=== PATIENT | female | born 1990 | race Caucasian/White ===

== ENCOUNTER 2020-06-25 15:13 | Emergency (ER) | payer MEDICAID ==
[2020-06-25] MEDS ORDERED: Glucagon,Human Recombinant 1 MG Vial IVPUSH ONE ×2 (15:27→15:43)
--- NOTE | 2020-06-25 15:29 | EDM.PDOC ---
ED HPI GENERAL MEDICAL PROBLEM - General Chief Complaint: ENT Problem Stated Complaint: CASTRO OF STEAK STUCK IN HER THROAT Time Seen by Provider: 06/25/20 15:21 Source of Information: Reports: Patient History Limitations: Reports: No Limitations - History of Present Illness INITIAL COMMENTS - FREE TEXT/NARRATIVE: This patient is a 30 year old female that presents to the ER. Patient reports that at 10:30am this morning she was eating steak. She reports a piece of steak got stuck in her throat. She reports that it did drop down to the epigastric area that she points at, then she reports it keeps coming back up to the throat when she vomits. She reports vomiting multiple times. Patient reports that she has had this happen before in the past. Patient reports that she does feel short fo breath, cough, and there is pain associated with it. Patient current oxygen saturation is 98% RA, Lung sounds are clear, she does not appear in any respiratory distress. Onset: Today Onset Date: 06/25/20 Onset Time: 10:30 Location: Reports: Chest, Other (throat) Severity: Moderate Improves with: Reports: None Worsens with: Reports: None Associated Symptoms: Reports: Cough, Nausea/Vomiting, Shortness of Breath. Denies: Confusion, Chest Pain, cough w sputum, Diaphoresis, Fever/Chills, Headaches, Loss of Appetite, Malaise, Rash, Seizure, Syncope, Weakness Epigastric Pain Score (Numeric/FACES): 10 - Related Data Allergies Allergy/AdvReac Type Severity Reaction Status Date / Time Penicillins Allergy Hives Verified 06/25/20 15:26 Home Meds: Home Meds . [No Known Home Meds] 06/25/20 [History] Past Medical History - Past Surgical History HEENT Surgical History: Reports: Tonsillectomy GI Surgical History: Reports: Cholecystectomy Female Surgical History: Reports: Tubal Ligation Social & Family History - Family History Family Medical History: No Pertinent Family History - Tobacco Use Tobacco Use Status *Q: Never Tobacco User - Caffeine Use Caffeine Use: Reports: None - Recreational Drug Use Recreational Drug Use: No ED ROS GENERAL - Review of Systems Review Of Systems: See Below Constitutional: Reports: No Symptoms Respiratory: Reports: Shortness of Breath, Cough. Denies: Wheezing, Pleuritic Chest Pain, Sputum, Hemoptysis Cardiovascular: Reports: No Symptoms Endocrine: Reports: No Symptoms GI/Abdominal: Reports: Abdominal Pain, Distension, Nausea, Vomiting, Other (Epigastric, throat pain, sensation) : Reports: No Symptoms Musculoskeletal: Reports: No Symptoms Skin: Reports: No Symptoms Neurological: Reports: No Symptoms Psychiatric: Reports: No Symptoms Hematologic/Lymphatic: Reports: No Symptoms Immunologic: Reports: No Symptoms ED EXAM, GI/ABD - Physical Exam Exam: See Below Exam Limited By: No Limitations General Appearance: Alert, WD/WN, No Apparent Distress, Anxious Eyes: Bilateral: Normal Appearance Ears: Normal External Exam, Normal Canal, Hearing Grossly Normal, Normal TMs Nose: Normal Inspection, Normal Mucosa, No Blood Throat/Mouth: Normal Inspection, Normal Lips, Normal Teeth, Normal Gums, Normal Oropharynx, Normal Voice, No Airway Compromise Head: Atraumatic, Normocephalic Course - Vital Signs Last Recorded V/S: Last Vital Signs Temp 98.7 F 06/25/20 15:17 Pulse 66 06/25/20 15:17 Resp 18 06/25/20 15:17 BP 110/76 06/25/20 15:17 Pulse Ox 98 06/25/20 15:17 - Orders/Labs/Meds Orders: Active Orders 24 hr Category Date Time Status Chest 2V [CR] Stat Exams 06/25/20 17:38 Ordered Meds: Medications Discontinued Medications Generic Name Dose Route Start Last Admin Trade Name Janey PRAna Reason Stop Dose Admin Glucagon 1 mg 06/25/20 15:27 06/25/20 15:34 Glucagon,Human Recombinant 1 Mg Vial IVPUSH 06/25/20 15:28 1 mg ONETIME ONE Administration Glucagon 1 mg 06/25/20 15:43 06/25/20 15:52 Glucagon,Human Recombinant 1 Mg Vial IVPUSH 06/25/20 15:44 1 mg ONETIME ONE Administration - Re-Assessments/Exams Free Text/Narrative Re-Assessment/Exam: 06/25/20 17:44 Patient was reseen, she reports she still feels FB and now hurting in her back. She was on phone upon entering the room. Due to her cough and back pain, have ordered a CXR. However, after leaving the room, Rogers JAIMES called me and told me that the patient vomited up the piece of meat and she now feels fine. I went and saw patient again, she reports she has no pain, no FB sensation, no other symptoms. She reports she is ready to go home. Will discharge. Departure - Departure Time of Disposition: 17:45 Disposition: Home, Self-Care 01 Condition: Fair Clinical Impression: Esophageal foreign body Qualifiers: Encounter type: initial encounter Qualified Code(s): T18.108A - Unspecified foreign body in esophagus causing other injury, initial encounter - Discharge Information *PRESCRIPTION DRUG MONITORING PROGRAM REVIEWED*: Not Applicable *COPY OF PRESCRIPTION DRUG MONITORING REPORT IN PATIENT ROMAN: Not Applicable Instructions: Swallowed Foreign Body, Adult Forms: ED Department Discharge Additional Instructions: Followup with Dr. Pablo for a scope by calling [facility] [phone] Return to the ER for worsening of condition or any emergent concerns such as fever, shortness of breath, or other concerns Sepsis Event Note (ED) - Evaluation Sepsis Screening Result: No Definite Risk - Focused Exam Vital Signs: Vital Signs Temp Pulse Resp BP Pulse Ox 06/25/20 15:17 98.7 F 66 18 110/76 98 - My Orders Last 24 Hours: My Active Orders 06/25/20 17:38 Chest 2V [CR] Stat - Assessment/Plan Last 24 Hours: My Active Orders 06/25/20 17:38 Chest 2V [CR] Stat Plan: PLEASE SEE RN NOTE FOR PFSH
== END 2020-06-25 18:05 | disposition home or self-care (01) ==
LOC: CC.ED 15:13
DX: T18.128A Food in esophagus causing other injury, initial encounter (principal); Z88.0 Allergy status to penicillin
CPT/HCPCS: 96374; 99283-25; J1610

== ENCOUNTER → 2020-07-16 | Day surgery (SDC) | payer MEDICAID ==
[~2020-07-16] MED LIST: Lactated Ringers 1,000 ML IV ONE
[2020-07-16] MEDS: Lactated Ringers 1,000 ML IV ONE (10:20)
--- NOTE | 2020-07-19 07:05 | OR ---
DATE OF OPERATION: 07/16/2020 PREOPERATIVE DIAGNOSIS: DYSPHAGIA. POSTOPERATIVE DIAGNOSIS: DYSPHAGIA. SURGEON: Abel Pablo MD PROCEDURE: DIAGNOSTIC ESOPHAGOGASTRODUODENOSCOPY WITH BIOPSY X1, MAURO. ANESTHESIA: MAC. COMPLICATIONS: None. SPECIMEN: 1. Antral MAURO. 2. Biopsy x1, EG junction. FINDINGS: 1. Full-length diagnostic EGD. 2. Spontaneous reflux. 3. Nonobstructing Schatzki's ring. RECOMMENDATIONS: The patient is to start a trial of proton pump therapy. Her ring is around 20 mm and I am sure she gets spastic from her reflux. If down the road she continues to be symptomatic, she will need monitoring for possible need for dilatation. INDICATIONS: The patient has been having periods of reflux and at times she says food feels like it does not want to go down. It always does spontaneously and she was told many times to have an EGD. DESCRIPTION OF PROCEDURE: The patient was prepped and draped, placed in the left lateral decubitus position. A lubricated Olympus gastroscope was inserted and advanced to cricopharyngeus area and easily intubated in the esophagus. The esophageal lining was benign in its entire course. The Z-line was crisp around 40 cm. There was a nonobstructing Schatzki's ring present with a little bit of friability at the EG junction. The scope was easily passed through here with much room to spare, but just the irritation from the scope did cause a little bleeding. The scope was easily advanced through the stomach and pylorus into the second portion of the duodenum. This and the duodenal bulb were completely benign. The scope was brought back into the stomach and retroflexed. A thorough evaluation with and without retroflexion showed no signs of any gastritis or peptic ulcer disease. No polyps, masses, or otherwise. An antral CLOtest was obtained. The scope was brought back into the distal esophagus. The Schatzki's ring was again visualized. We did biopsy x1 at the EG junction. No other lesions were identified. Air was suctioned, the scope was removed without complication. ALLA/PERLA /[id number]
== END ==
LOC: CC.SDS 08:51
PROVIDERS: ATTEND Family Medicine
DX: K20.90 Esophagitis, unspecified without bleeding (principal); K22.2 Esophageal obstruction; K21.9 Gastro-esophageal reflux disease without esophagitis; K31.89 Other diseases of stomach and duodenum; Z88.0 Allergy status to penicillin; Z98.890 Other specified postprocedural states; F32.9 Major depressive disorder, single episode, unspecified; G89.29 Other chronic pain; R51.9 Headache, unspecified
CPT/HCPCS: 43239; 87081; J7120; 00731

== ENCOUNTER 2020-10-18 15:23 | Emergency (ER) | payer MEDICAID ==
[2020-10-18 15:58] LABS: CHLORIDE,CL 105 mEq/L (98-106); SODIUM,NA 141 mEq/L (136-145)
--- NOTE | 2020-10-18 16:23 | EDM.PDOC ---
ED HPI GENERAL MEDICAL PROBLEM - General Chief Complaint: Abdominal Pain Stated Complaint: PAIN IN STOMACH & FRONT Time Seen by Provider: 10/18/20 16:23 - History of Present Illness INITIAL COMMENTS - FREE TEXT/NARRATIVE: Indu is a 30 yo female who presents to the ED with c/o abdominal pain. Reports onset 10 minutes prior to presentation. She did not try anything at home for the pain prior to presentation. Describes the pain as sharp and reports it is "all over her abdomen." Does report it is worse in lower abdomen. Reports she was nauseated yesterday. Denies any fever, chills, vomiting, diarrhea. Reports she feels like she needs to stool but cant. Reports pain is improved by lying on her right side. She feels like her abdomen is bloated. Has not been passing gas. Does report LBM was this morning. BM was formed and hard. Denies any changes she's as "hasn't had sex in a year." Denies any urinary symptoms. Lower Back Pain Score (Numeric/FACES): 10 - Related Data Allergies Allergy/AdvReac Type Severity Reaction Status Date / Time Penicillins Allergy Hives Verified 10/18/20 15:28 Home Meds: Home Meds Escitalopram Oxalate [Lexapro] 10 mg PO DAILY 10/18/20 [History] PARoxetine [Paxil] 10 mg PO DAILY 10/18/20 [History] Past Medical History - Infectious Disease History Infectious Disease History: Reports: None - Past Surgical History HEENT Surgical History: Reports: Tonsillectomy GI Surgical History: Reports: Cholecystectomy Female Surgical History: Reports: Tubal Ligation Social & Family History - Family History Family Medical History: No Pertinent Family History - Tobacco Use Tobacco Use Status *Q: Never Tobacco User Second Hand Smoke Exposure: No - Caffeine Use Caffeine Use: Reports: Soda - Recreational Drug Use Recreational Drug Use: No ED ROS GENERAL - Review of Systems Review Of Systems: Comprehensive ROS is negative, except as noted in HPI. ED EXAM, GI/ABD - Physical Exam Exam: See Below Exam Limited By: No Limitations General Appearance: Alert, WD/WN, No Apparent Distress Throat/Mouth: Normal Inspection, Normal Lips, Normal Teeth, Normal Gums, Normal Oropharynx, Normal Voice, No Airway Compromise Head: Atraumatic, Normocephalic Neck: Normal Inspection, Supple, Non-Tender, Full Range of Motion Respiratory/Chest: No Respiratory Distress, Lungs Clear, Normal Breath Sounds, No Accessory Muscle Use, Chest Non-Tender Cardiovascular: Normal Peripheral Pulses, Regular Rate, Rhythm, No Edema, No Gal lop, No JVD, No Murmur, No Rub GI/Abdominal Exam: Normal Bowel Sounds, Soft, No Organomegaly, No Distention, No Mass, Pelvis Stable, Tender (diffuse). No: Guarding, Rigid, Rebound Back Exam: Normal Inspection, Full Range of Motion. No: CVA Tenderness (L), CVA Tenderness (R) Extremities: Normal Inspection, Normal Range of Motion, Non-Tender, Normal Capillary Refill, No Pedal Edema Neurological: Alert, Oriented, CN II-XII Intact, Normal Cognition, Normal Gait, Normal Reflexes, No Motor/Sensory Deficits Psychiatric: Normal Affect, Normal Mood Skin Exam: Warm, Dry, Intact, Normal Color, No Rash Course - Vital Signs Last Recorded V/S: Last Vital Signs Temp 98.7 F 10/18/20 15:38 Pulse 62 10/18/20 15:38 Resp 18 10/18/20 15:38 BP 96/47 L 10/18/20 15:38 Pulse Ox 97 10/18/20 15:38 - Orders/Labs/Meds Orders: Active Orders 24 hr Category Date Time Status Abdomen 2V AP Flat Upright [CR] Stat Exams 10/18/20 16:12 Taken Labs: Laboratory Tests 10/18/20 10/18/20 10/18/20 Range/Units 15:35 15:40 15:40 WBC 6.3 (4.0-11.0) 10^3/uL RBC 4.12 (4.00-5.50) x10^6/uL Hgb 13.0 (12.0-16.0) g/dL Hct 37.8 (37.0-47.0) % MCV 91.7 (83.0-97.0) fL MCH 31.6 (27.0-32.0) pg MCHC 34.4 (32.0-36.0) g/dL RDW Coeff of Della 12.7 (11.0-15.0) % Plt Count 265 (150-400) 10^3/uL Immature Gran % (Auto) 0.2 (0.0-4.9) % Neut % (Auto) 61.2 (41-71) % Lymph % (Auto) 24.7 (24-44) % Butts % (Auto) 8.5 (0-10) % Eos % (Auto) 4.9 (0-6) % Baso % (Auto) 0.5 (0-1) % Neut # (Auto) 3.87 (1.80-8.00) x10^3/uL Lymph # (Auto) 1.56 (0.60-5.00) 10^3/uL Butts # (Auto) 0.54 (0.00-1.50) 10^3/uL Eos # (Auto) 0.31 (0.00-1.50) 10^3/uL Baso # (Auto) 0.03 (0.00-0.50) 10^3/uL Immature Gran # (Auto) 0.01 (0.00-0.49) 10^3/uL Sodium 141 (136-145) mEq/L Potassium 3.3 L (3.5-5.0) mEq/L Chloride 105 (98-106) mEq/L Carbon Dioxide 28 (21-32) mmol/L BUN 13 (7-18) mg/dL Creatinine 0.6 (0.6-1.0) mg/dL Est Cr Clr Drug Dosing 123.37 mL/min Estimated GFR (MDRD) > 60 (>=60) mL/min Glucose 116 H (75-99) mg/dL Calcium 8.3 L (8.4-10.1) mg/dL Total Bilirubin 0.5 (0.0-1.0) mg/dL AST 79 H (15-37) U/L ALT 41 (12-78) U/L Alkaline Phosphatase 68 (46-116) U/L C-Reactive Protein < 0.2 L (0.2-0.8) mg/dL Total Protein 6.8 (6.4-8.2) g/dL Albumin 3.6 (3.4-5.0) g/dL Amylase 57 (25-115) U/L Lipase 117 (73-393) U/L Urine Color Yellow (YELLOW) Urine Appearance Clear (CLEAR) Urine pH 5.5 (4.5-8.0) Ur Specific [place] >= 1.030 H (1.003-1.020) Urine Protein Negative (NEGATIVE) mg/dL Urine Glucose (UA) 100 H (NEGATIVE) mg/dL Urine Ketones Negative (NEGATIVE) mg/dL Urine Occult Blood Moderate H (NEGATIVE) Urine Nitrite Negative (NEGATIVE) Urine Bilirubin Negative (NEGATIVE) Urine Urobilinogen 0.2 (0.2-1.0) EU/dL Ur Leukocyte Esterase Negative (NEGATIVE) Urine RBC 5-10 H (0-5) /HPF Urine WBC 5-10 H (0-5) /HPF Ur Squamous Epith Cells Moderate H (NOT SEEN) /HPF Amorphous Sediment Few H (NOT SEEN) /HPF Urine Bacteria Occasional H (NOT SEEN) /HPF Urine Mucus Few H (NOT SEEN) /HPF Departure - Departure Time of Disposition: 16:39 Disposition: Home, Self-Care 01 Condition: Fair Clinical Impression: Abdominal pain Constipation Qualifiers: Constipation type: unspecified constipation type Qualified Code(s): K59.00 - Constipation, unspecified - Discharge Information *PRESCRIPTION DRUG MONITORING PROGRAM REVIEWED*: Not Applicable *COPY OF PRESCRIPTION DRUG MONITORING REPORT IN PATIENT ROMAN: Not Applicable Instructions: Constipation, Adult, Abdominal Pain, Adult, [id number] Referrals: Abel Pablo MD [Primary Care Provider] - Forms: ED Department Discharge Additional Instructions: - As discussed, labs all look good - Xray does show moderate stool burden - Recommend trying Miralax 17 g daily - Increase fiber in diet - Push fluids - Be as active as possible to keep bowels moving - Follow up with PCP in clinic for recheck if symptoms worsen or persist - Return to ED for emergent needs Sepsis Event Note (ED) - Evaluation Sepsis Screening Result: No Definite Risk - Focused Exam Vital Signs: Vital Signs Temp Pulse Resp BP Pulse Ox 10/18/20 15:38 98.7 F 62 18 96/47 L 97 - My Orders Last 24 Hours: My Active Orders 10/18/20 16:12 Abdomen 2V AP Flat Upright [CR] Stat - Assessment/Plan Last 24 Hours: My Active Orders 10/18/20 16:12 Abdomen 2V AP Flat Upright [CR] Stat Assessment:: Abdominal pain Constipation Plan: As above.
== END 2020-10-18 16:45 | disposition home or self-care (01) ==
LOC: CC.ED 15:23
DX: K59.00 Constipation, unspecified (principal); Z88.0 Allergy status to penicillin
CPT/HCPCS: 36415; 74019; 80053; 81001; 82150; 83690; 85025; 86140; 99284-25

== ENCOUNTER 2021-02-20 17:27 | Emergency (ER) | payer MEDICAID ==
--- NOTE | 2021-02-20 18:17 | EDM.PDOC ---
ED HPI GENERAL MEDICAL PROBLEM - General Chief Complaint: Genitourinary Problem Stated Complaint: HEMATURIA Time Seen by Provider: 02/20/21 17:40 Source of Information: Reports: Patient History Limitations: Reports: No Limitations - History of Present Illness INITIAL COMMENTS - FREE TEXT/NARRATIVE: In with complaints of hematuria. States was started on Cipro and flagyl about 8 days ago after being seen in [place]. Was told that she had bladder infection and gastritis. She has no appetite. She still has suprapubic pain and blood in her urine. No fever or chills with it. No flank pain with it. Onset: Gradual Location: Reports: Abdomen - Related Data Allergies Allergy/AdvReac Type Severity Reaction Status Date / Time Penicillins Allergy Hives Verified 02/20/21 17:28 Home Meds: Home Meds Escitalopram Oxalate [Lexapro] 10 mg PO DAILY 10/18/20 [History] PARoxetine [Paxil] 10 mg PO DAILY 10/18/20 [History] Past Medical History - Infectious Disease History Infectious Disease History: Reports: None - Past Surgical History HEENT Surgical History: Reports: Tonsillectomy GI Surgical History: Reports: Cholecystectomy Female Surgical History: Reports: Tubal Ligation Social & Family History - Family History Family Medical History: No Pertinent Family History - Caffeine Use Caffeine Use: Reports: Soda ED ROS GENERAL - Review of Systems Review Of Systems: See Below Constitutional: Denies: Fever, Chills Respiratory: Reports: No Symptoms Cardiovascular: Reports: No Symptoms GI/Abdominal: Reports: Abdominal Pain, Decreased Appetite : Reports: Hematuria. Denies: Dysuria, Flank Pain, Frequency, Irregular Menses Musculoskeletal: Denies: Back Pain Skin: Reports: No Symptoms ED EXAM, RENAL/ - Physical Exam Exam: See Below Exam Limited By: No Limitations General Appearance: Alert, WD/WN, No Apparent Distress Respiratory/Chest: No Respiratory Distress, Lungs Clear, Normal Breath Sounds Cardiovascular: Regular Rate, Rhythm GI/Abdominal: Normal Bowel Sounds, Soft, Tender (across the suprapubic area and slightly to the left. ) Back Exam: Normal Inspection. No: CVA Tenderness (L), CVA Tenderness (R) Extremities: No Pedal Edema Neurological: Alert, Oriented Skin Exam: Warm, Dry, Intact Course - Orders/Labs/Meds Labs: Laboratory Tests 02/20/21 Range/Units 17:45 Urine Color Yellow (YELLOW) Urine Appearance Clear (CLEAR) Urine pH 5.5 (4.5-8.0) Ur Specific [place] >= 1.030 H (1.003-1.020) Urine Protein Negative (NEGATIVE) mg/dL Urine Glucose (UA) Negative (NEGATIVE) mg/dL Urine Ketones Negative (NEGATIVE) mg/dL Urine Occult Blood Large H (NEGATIVE) Urine Nitrite Negative (NEGATIVE) Urine Bilirubin Negative (NEGATIVE) Urine Urobilinogen 0.2 (0.2-1.0) EU/dL Ur Leukocyte Esterase Negative (NEGATIVE) Urine RBC 10-20 H (0-5) /HPF Urine WBC Not seen (0-5) /HPF Ur Epithelial Cells Moderate H (NOT SEEN) /HPF Urine Mucus Moderate H (NOT SEEN) /HPF - Re-Assessments/Exams Free Text/Narrative Re-Assessment/Exam: 02/20/21 18:15 Discussed UA has blood but no WBC or leukocytes or nitrites. Will need renal/bladder US to evaluate hematuria without infection. Departure - Departure Time of Disposition: 18:16 Disposition: Home, Self-Care 01 Condition: Good Clinical Impression: Hematuria - Discharge Information *PRESCRIPTION DRUG MONITORING PROGRAM REVIEWED*: Not Applicable *COPY OF PRESCRIPTION DRUG MONITORING REPORT IN PATIENT ROMAN: Not Applicable Instructions: Hematuria, Adult Forms: ED Department Discharge Additional Instructions: Push fluids as much as possible Xray will call you tomorrow to set up appt for renal/bladder ultrasound. recheck with Dr. Pablo if not improving Tylenol as needed for discomfort - Problem List & Annotations (1) Hematuria SNOMED Code(s): 72881512 Code(s): R31.9 - HEMATURIA, UNSPECIFIED Status: Acute Priority: High Qualifiers: Hematuria type: unspecified type Qualified Code(s): R31.9 - Hematuria, unspecified - Problem List Review Problem List Initiated/Reviewed/Updated: Yes
== END 2021-02-20 18:30 | disposition home or self-care (01) ==
LOC: CC.ED 17:27
DX: R31.9 Hematuria, unspecified (principal); Z88.0 Allergy status to penicillin
CPT/HCPCS: 81001; 99283

== ENCOUNTER 2021-03-30 18:03 | Emergency (ER) | payer MEDICAID ==
--- NOTE | 2021-03-30 18:34 | EDM.PDOC ---
ED HPI GENERAL MEDICAL PROBLEM - General Chief Complaint: Respiratory Problem Stated Complaint: sob, sore throat Time Seen by Provider: 03/30/21 18:25 Source of Information: Reports: Patient History Limitations: Reports: No Limitations - History of Present Illness INITIAL COMMENTS - FREE TEXT/NARRATIVE: This is a 31-year-old female patient that presents to the emergency department with 2-day onset of shortness of breath. Patient states she began having some shortness of breath along with sore throat and upper chest discomfort for about the last 2 days. Patient has associated body aches,nausea, and "itchiness in throat". She also has been coughing on occasion. States that she did have the Pfizer vaccine with the last dose being in December 2020. States that she also has some congestion and her ears feel "plugged". Patient has tried some [id number] cold and flu remedies such as Mucinex and states very little relief. 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 ED EXAM, GENERAL - Physical Exam Exam: See Below Exam Limited By: No Limitations General Appearance: Alert, WD/WN, No Apparent Distress Ears: Normal External Exam, Hearing Grossly Normal, Normal TMs Nose: Normal Inspection, Normal Mucosa, No Blood Throat/Mouth: Normal Inspection, Normal Lips, Normal Teeth, Normal Gums, Normal Oropharynx, Normal Voice, No Airway Compromise Head: Atraumatic, Normocephalic Neck: Supple, Non-Tender, Full Range of Motion. No: Lymphadenopathy (L), Lymphadenopathy (R) Respiratory/Chest: No Respiratory Distress, Lungs Clear, Normal Breath Sounds Cardiovascular: Regular Rate, Rhythm, No Gallop, No JVD, No Murmur, No Rub GI/Abdominal: Soft, Non-Tender (Female) Exam: Deferred Rectal (Female) Exam: Deferred Neurological: Alert, Oriented, Normal Cognition Psychiatric: Normal Affect, Normal Mood Skin Exam: Warm, Dry, Intact, Normal Color, No Rash Lymphatic: No Adenopathy Course - Vital Signs Last Recorded V/S: Last Vital Signs Temp 97.7 F 03/30/21 18:05 Pulse 67 03/30/21 18:05 Resp 12 03/30/21 18:05 BP 111/65 03/30/21 18:05 Pulse Ox 96 03/30/21 18:05 - Orders/Labs/Meds Labs: Laboratory Tests 03/30/21 Range/Units 18:23 Influenza Type A RNA Negative (NEGATIVE) Influenza Type B RNA Negative (NEGATIVE) SARS-CoV-2 RNA (AVTAR) Negative (NEGATIVE) Meds: Medications Discontinued Medications Generic Name Dose Route Start Last Admin Trade Name Freq PRN Reason Stop Dose Admin Ondansetron HCl 1 packet 03/30/21 19:20 03/30/21 19:26 Take Home: Ondansetron 4 Mg Tab.Dis, 2 Tab Pack PO 03/30/21 19:21 Not Given ONETIME ONE - Re-Assessments/Exams Free Text/Narrative Re-Assessment/Exam: This is a 31-year-old female that presented to the emergency department with onset of flulike symptoms for the past 2 days. Completed a Covid 19 and influenza test with results being both negative. Plan will be to discharge patient home and treat symptomatically with a viral illness. Patient was given a prescription for Zofran ODT that she may take as needed for nausea or vomiting. Patient was encouraged to drink fluids, take Tylenol and ibuprofen for fever or body aches, and may use [id number] cold and flu remedies if they are beneficial. She may follow-up with her primary care provider or return to the emergency department if symptoms are becoming worse. Departure - Departure Time of Disposition: 19:24 Disposition: Home, Self-Care 01 Condition: Good Clinical Impression: Viral illness - Discharge Information *PRESCRIPTION DRUG MONITORING PROGRAM REVIEWED*: Not Applicable *COPY OF PRESCRIPTION DRUG MONITORING REPORT IN PATIENT ROMAN: Not Applicable Prescriptions: Ondansetron [Zofran ODT] 4 mg PO Q6H PRN #10 tab.dis PRN Reason: Nausea Instructions: Viral Illness, Adult Referrals: PCP,None [Primary Care Provider] - Forms: ED Department Discharge Additional Instructions: 1. May take Zofran ODT every 6 hours as needed for nausea or vomiting. 2. Push oral fluids. 3. May use Tylenol or ibuprofen for fever and body aches. 4. May continue to use eqnf-cah-tkbeive cold remedies if they are beneficial. 5. If symptoms worsen may follow-up with primary care provider or follow-up with in the emergency department. Sepsis Event Note (ED) - Evaluation Sepsis Screening Result: No Definite Risk - Focused Exam Vital Signs: Vital Signs Temp Pulse Resp BP Pulse Ox 03/30/21 18:05 97.7 F 67 12 111/65 96
[2021-03-30] MEDS ORDERED: Take Home: Ondansetron 4 MG Tab.DIS, 2 Tab Pack ONE (19:01)
[2021-03-30 19:12] LABS: CORONAVIRUS COVID-19 NAA NEGATIVE (NEGATIVE)
[2021-03-30] MEDS ORDERED: Take Home: Ondansetron 4 MG Tab.DIS, 2 Tab Pack PO ONE (19:20)
== END 2021-03-30 19:28 | disposition home or self-care (01) ==
LOC: CC.ED 18:03
DX: B34.9 Viral infection, unspecified (principal); Z88.0 Allergy status to penicillin; Z20.822 Contact with and (suspected) exposure to COVID-19
CPT/HCPCS: 0240U; 99283; A9270-GY

== ENCOUNTER 2021-07-17 10:01 | Emergency (ER) | payer MEDICAID | END 2021-07-17 10:55 | disposition home or self-care (01) | LOC: CC.ED 10:01 | DX: S63.501A Unspecified sprain of right wrist, initial encounter (principal); Z88.0 Allergy status to penicillin; X50.9XXA Other and unspecified overexertion or strenuous movements or postures, initial encounter | CPT/HCPCS: 73110-RT; 99283; 99283-25 ==

== ENCOUNTER 2022-05-14 10:51 | Emergency (ER) | payer MEDICAID ==
[2022-05-14] MEDS ORDERED: Acetaminophen 500 MG Tab PO ONE (11:55)
[2022-05-14 12:20] LABS: CORONAVIRUS COVID-19 NAA POSITIVE (NEGATIVE)
== END 2022-05-14 12:37 | disposition home or self-care (01) ==
LOC: CC.ED 10:51
DX: U07.1 COVID-19 (principal); Z88.0 Allergy status to penicillin
CPT/HCPCS: 0240U; 99283; A9270-GY

== ENCOUNTER 2023-07-24 05:25 | Emergency (ER) | payer MEDICAID ==
[2023-07-24] MEDS: Ketorolac 30 MG/ML SDV IVPUSH ONE (06:00)
[2023-07-24] MEDS: Ondansetron 4 MG/2 ML SDV IVPUSH ONE (06:00)
[2023-07-24] MEDS: Morphine 2 MG/ML SYRINGE IVPUSH ONE (06:01)
[2023-07-24] MEDS: Sodium Chloride 0.9% 1,000 ML IV ONE ×3 (06:01→08:25)
[2023-07-24] MEDS: Ondansetron 4 MG/2 ML SDV ONE (06:02)
[2023-07-24 06:19] LABS: BASOPHILS ABSOLUTE AUTO 0.03 10^3/uL (0.00-0.50); BASOPHILS PERCENT AUTO 0.2 % (0-1); EOSINOPHILS ABSOLUTE AUTO 0.04 10^3/uL (0.00-1.50); EOSINOPHILS PERCENT AUTO 0.2 % (0-6); HEMATOCRIT 36.2 % (37.0-47.0); HEMOGLOBIN 12.5 g/dL (12.0-16.0); IMMATURE GRAN ABSOLUTE AUTO 0.07 10^3/uL (0.00-0.49); IMMATURE GRAN PERCENT AUTO 0.4 % (0.0-4.9); LYMPHOCYTES ABSOLUTE AUTO 0.76 10^3/uL (0.60-5.00); LYMPHOCYTES PERCENT AUTO 4.3 % (24-44); MEAN CORPUSCULAR HEMOGLOBIN 31.3 pg (27.0-32.0); MEAN CORPUSCULAR HGB CONC 34.5 g/dL (32.0-36.0); MEAN CORPUSCULAR VOLUME 90.7 fL (83.0-97.0); MONOCYTES ABSOLUTE AUTO 1.16 10^3/uL (0.00-1.50); MONOCYTES PERCENT AUTO 6.6 % (0-10); NEUTROPHILS ABSOLUTE AUTO 15.61 x10^3/uL (1.80-8.00); NEUTROPHILS PERCENT AUTO 88.3 % (41-71); PLATELET COUNT,PLT 266 10^3/uL (150-400); RED BLOOD CELL COUNT 3.99 x10^6/uL (4.00-5.50); WHITE BLOOD CELL COUNT,WBC 17.7 10^3/uL (4.0-11.0)
[2023-07-24 06:23] LABS: APPEARANCE,URINE CLOUDY (CLEAR); COLOR,URINE YELLOW (YELLOW); GLUCOSE,URINE NEGATIVE (NEGATIVE); KETONES,URINE NEGATIVE (NEGATIVE); LEUKOCYTE ESTERASE,URINE SMALL (NEGATIVE); NITRITE,URINE POSITIVE (NEGATIVE); OCCULT BLOOD,URINE LARGE (NEGATIVE); PROTEIN,URINE >=300 mg/dL (NEGATIVE)
[2023-07-24 06:24] LABS: BILIRUBIN,URINE SMALL (NEGATIVE)
[2023-07-24 06:32] LABS: BACTERIA,URINE MODERATE /HPF (NOT SEEN); EPITHELIAL CELLS,URINE OCCASIONAL /HPF (NOT SEEN); RBC,URINE 20-30 /HPF (0-5); WBC,URINE >100 /HPF (0-5)
[2023-07-24 06:33] LABS: LACTIC ACID 2.1 mmol/L (0.4-2.0)
[2023-07-24 06:42] LABS: ALBUMIN 2.9 g/dL (3.4-5.0); BILIRUBIN TOTAL 0.8 mg/dL (0.0-1.0); CALCIUM 7.9 mg/dL (8.4-10.1); CREATININE 0.7 mg/dL (0.6-1.0); EST CRCL DRUG DOSING (CG) 102.86 mL/min; MAGNESIUM 1.6 mg/dL (1.8-2.4); POTASSIUM,K 3.1 mEq/L (3.5-5.0); PROTEIN TOTAL,TP 6.5 g/dL (6.4-8.2)
[2023-07-24] MEDS ORDERED: Sodium Chloride 0.9% 10 ML Syringe FLUSH PRN (07:06)
[2023-07-24] MEDS: Cefepime 2 GM in Sodium Chloride 0.9% 50 ML IV ONE (07:55)
[2023-07-24] MEDS: diphenhydrAMINE 50 MG/ML SDV IVPUSH ONE (08:15)
[2023-07-24] MEDS: methylPREDNISolone Sodium Succinate 125 MG/2 ML SDV IVPUSH ONE (08:15)
[2023-07-24] MEDS: methylPREDNISolone Sodium Succinate 125 MG/2 ML SDV ONE (08:16)
[2023-07-24] MEDS: diphenhydrAMINE 50 MG/ML SDV ONE (08:16)
[2023-07-24] MEDS: Magnesium Sulfate/Water 2 GM in Premix Bag 1 BAG IV ONE (08:25)
[2023-07-24] MEDS: fentaNYL 50 MCG/ML SDV IVPUSH ONE ×2 (08:25→09:39)
[2023-07-24] MEDS: Iopamidol 755 Mg/ML 100 ML Bottle IVPUSH ONE (08:28)
[2023-07-24] MEDS: Norepinephrine Bit/D5W Premix 250 ML IV SCH (09:40)
== END 2023-07-24 11:40 ==
LOC: CC.ED 05:25
DX: A41.9 Sepsis, unspecified organism (principal); R65.21 Severe sepsis with septic shock; E87.6 Hypokalemia; N12 Tubulo-interstitial nephritis, not specified as acute or chronic; E83.42 Hypomagnesemia; Z91.041 Radiographic dye allergy status; Z88.0 Allergy status to penicillin; Z90.49 Acquired absence of other specified parts of digestive tract
CPT/HCPCS: 36415; 71045; 74177; 80053; 81001; 81025; 83605; 83690; 83735; 84484; 85025; 87040; 87086; 87088; 93005; 96361; 96365; 96366; 96367; 96375; 96376; 99285; J0692; J1200; J1885; J2270; J2405; J2930; J3010; J3475; J3490; J7030; Q9967; 87186; 93010; 99284

== ENCOUNTER 2023-09-15 00:36 | Emergency (ER) | payer MEDICAID ==
[2023-09-15 01:39] LABS: BASOPHILS ABSOLUTE AUTO 0.04 10^3/uL (0.00-0.50); BASOPHILS PERCENT AUTO 0.5 % (0-1); EOSINOPHILS ABSOLUTE AUTO 0.22 10^3/uL (0.00-1.50); EOSINOPHILS PERCENT AUTO 2.8 % (0-6); HEMATOCRIT 38.4 % (37.0-47.0); HEMOGLOBIN 12.7 g/dL (12.0-16.0); IMMATURE GRAN ABSOLUTE AUTO 0.02 10^3/uL (0.00-0.49); IMMATURE GRAN PERCENT AUTO 0.3 % (0.0-4.9); LYMPHOCYTES ABSOLUTE AUTO 2.35 10^3/uL (0.60-5.00); LYMPHOCYTES PERCENT AUTO 29.9 % (24-44); MEAN CORPUSCULAR HEMOGLOBIN 30.5 pg (27.0-32.0); MEAN CORPUSCULAR HGB CONC 33.1 g/dL (32.0-36.0); MEAN CORPUSCULAR VOLUME 92.1 fL (83.0-97.0); MONOCYTES ABSOLUTE AUTO 0.61 10^3/uL (0.00-1.50); MONOCYTES PERCENT AUTO 7.8 % (0-10); NEUTROPHILS ABSOLUTE AUTO 4.62 x10^3/uL (1.80-8.00); NEUTROPHILS PERCENT AUTO 58.7 % (41-71); PLATELET COUNT,PLT 305 10^3/uL (150-400); RED BLOOD CELL COUNT 4.17 x10^6/uL (4.00-5.50); WHITE BLOOD CELL COUNT,WBC 7.9 10^3/uL (4.0-11.0)
[2023-09-15] MEDS: Orphenadrine 60 MG/2 ML Inj IM ONE (01:46)
[2023-09-15] MEDS: Ketorolac 30 MG/ML SDV IM ONE (01:47)
[2023-09-15 01:53] LABS: ALANINE AMINOTRANSFERASE,ALT 37 U/L (12-78); ALBUMIN 3.4 g/dL (3.4-5.0); ALKALINE PHOSPHATASE 94 U/L (46-116); ASPARTATE AMNIOTRANSFERASE,AST 26 U/L (15-37); BILIRUBIN TOTAL 0.3 mg/dL (0.0-1.0); BLOOD UREA NITROGEN,BUN 13 mg/dL (7-18); CALCIUM 8.5 mg/dL (8.4-10.1); CARBON DIOXIDE,CO2 28 mmol/L (21-32); CHLORIDE,CL 106 mEq/L (98-106); CREATININE 0.6 mg/dL (0.6-1.0); ESTIMATED GFR 121 mL/min (>=60); GLUCOSE RANDOM 97 mg/dL (75-99); POTASSIUM,K 3.8 mEq/L (3.5-5.0); PROTEIN TOTAL,TP 6.8 g/dL (6.4-8.2); SODIUM,NA 142 mEq/L (136-145)
[2023-09-15 01:58] LABS: APPEARANCE,URINE CLEAR (CLEAR); BILIRUBIN,URINE NEGATIVE (NEGATIVE); COLOR,URINE YELLOW (YELLOW); GLUCOSE,URINE NEGATIVE (NEGATIVE); KETONES,URINE NEGATIVE (NEGATIVE); LEUKOCYTE ESTERASE,URINE NEGATIVE (NEGATIVE); NITRITE,URINE NEGATIVE (NEGATIVE); OCCULT BLOOD,URINE SMALL (NEGATIVE); PROTEIN,URINE NEGATIVE (NEGATIVE); UROBILINOGEN,URINE 0.2 EU/dL (0.2-1.0)
[2023-09-15 02:10] LABS: BACTERIA,URINE OCCASIONAL /HPF (NOT SEEN); EPITHELIAL CELLS,URINE FEW /HPF (NOT SEEN)
== END 2023-09-15 02:15 | disposition home or self-care (01) ==
LOC: CC.ED 00:36
DX: R07.89 Other chest pain (principal); F17.290 Nicotine dependence, other tobacco product, uncomplicated; Z90.49 Acquired absence of other specified parts of digestive tract; Z79.899 Other long term (current) drug therapy; Z88.0 Allergy status to penicillin; Z91.041 Radiographic dye allergy status
CPT/HCPCS: 36415; 71046; 80053; 81001; 84484; 85025; 96372; 99284; J1885; J2360; 93010

== ENCOUNTER 2024-03-07 19:37 | Emergency (ER) | payer MEDICAID ==
[2024-03-07] MEDS ORDERED: Sodium Chloride 0.9% 10 ML Syringe FLUSH PRN (19:50)
[2024-03-07] MEDS: Glucagon,Human Recombinant 1 MG Vial IVPUSH ONE ×2 (19:54→20:12)
== END 2024-03-07 21:05 | disposition home or self-care (01) ==
LOC: CC.ED 19:37
DX: T18.128A Food in esophagus causing other injury, initial encounter (principal); Z80.49 Family history of malignant neoplasm of other genital organs; Z79.899 Other long term (current) drug therapy; Z88.0 Allergy status to penicillin; Z91.041 Radiographic dye allergy status
CPT/HCPCS: 96374; 99283; J1610

== ENCOUNTER 2024-06-21 15:59 | Emergency (ER) | payer MEDICAID ==
[2024-06-21] MEDS: Ketorolac 30 MG/ML SDV IM ONE (16:53)
[2024-06-21] MEDS: Orphenadrine 60 MG/2 ML Inj IM ONE (16:54)
[2024-06-21] MEDS: Take Home: predniSONE 20 MG, 2 Tab Pack PO ONE (18:19)
[2024-06-21] MEDS: Take Home: Cyclobenzaprine 10 MG Tab, 4 Tab Pack PO ONE (18:19)
== END 2024-06-21 17:53 | disposition home or self-care (01) ==
LOC: CC.ED 15:59
DX: M54.50 Low back pain, unspecified (principal); Z88.0 Allergy status to penicillin; Z91.041 Radiographic dye allergy status; Z79.899 Other long term (current) drug therapy; Z90.49 Acquired absence of other specified parts of digestive tract
CPT/HCPCS: 72100; 96372; 99283; A9270; J1885; J2360; J7512